=== PATIENT | female | born 1995 | race Caucasian/White ===

== ENCOUNTER 2021-04-18 08:46 | Emergency (ER) | payer OTHER ==
[~2021-04-18] VITALS: Ht 160 cm; Wt 121.1 kg
[2021-04-18 08:51] VITALS: BP 136/95
[2021-04-18] MEDS ORDERED: DEXAMETHASONE 4 MG TAB PO ONE (09:15)
[2021-04-18] MEDS ORDERED: PRED20TA5 PO (09:33)
--- NOTE | 2021-04-18 09:35 | NUR ---
26/F presents to ED with c/o left ear pain. Patient states she was diagnosed with psoriasis in February and it has been worsening since, stating "the psoriasis went to my left ear." Patient appears to have generalized skin redness, sores and dryness extending to face and ears. Patient describes it as a constant 9/10 pain, states she was given ear drops and antibiotics but has seen no improvements, states she has been taking Ibuprofen at home for pain with no relief.
[2021-04-18 10:12] VITALS: BP 136/95
--- NOTE | 2021-04-18 10:12 | NUR ---
Patient discharged with v/s stable. Written and verbal after care instructions given and explained. Patient alert, oriented and verbalized understanding of instructions. Ambulatory with steady gait. All questions addressed prior to discharge. ID band removed. Patient advised to follow up with PMD. Rx of DELTASONE given. Patient educated on indication of medication including possible reaction and side effects. Opportunity to ask questions provided and answered.
== END 2021-04-18 10:12 | disposition home or self-care (01) ==
LOC: MED 08:46
DX: L40.9 Psoriasis, unspecified (principal); H60.92 Unspecified otitis externa, left ear; I10 Essential (primary) hypertension; R42 Dizziness and giddiness
CPT/HCPCS: 99283